=== PATIENT | male | born 1955 | race Caucasian/White ===

== ENCOUNTER 2019-07-27 17:15 | Emergency (ER) | payer MEDICAID, OTHER ==
[~2019-07-27] VITALS: Ht 182.9 cm; Wt 90.7 kg
[2019-07-27 18:05] VITALS: BP 158/107
== END 2019-07-27 18:08 | disposition home or self-care (01) ==
LOC: ER 17:15
DX: L20.9 Atopic dermatitis, unspecified (principal); I10 Essential (primary) hypertension; Z76.0 Encounter for issue of repeat prescription

== ENCOUNTER 2019-12-20 15:54 | Emergency (ER) | payer MEDICAID ==
[~2019-12-20] VITALS: Ht 182.9 cm; Wt 88.5 kg
[2019-12-20] MEDS ORDERED: cloNIDine HCL 0.1 MG TAB PO ONE (16:15)
[2019-12-20] MEDS ORDERED: EPINEPHrine HCL 1 MG/1 ML AMP SC ONE (17:15)
[2019-12-20] MEDS ORDERED: methylPREDNISolone SOD SUCC 125 MG/2 ML VL IM ONE (17:15)
[2019-12-20 17:45] VITALS: BP 155/104
== END 2019-12-20 17:46 | disposition home or self-care (01) ==
LOC: ER 15:54
DX: T78.40XA Allergy, unspecified, initial encounter (principal); I10 Essential (primary) hypertension; X58.XXXD Exposure to other specified factors, subsequent encounter
CPT/HCPCS: 96372; 99284; J0171; J2930

== ENCOUNTER 2020-02-01 09:06 | Emergency (ER) | payer MEDICAID ==
[~2020-02-01] VITALS: Ht 182.9 cm; Wt 81.6 kg
[2020-02-01 09:21] VITALS: BP 155/110
[2020-02-01] MEDS ORDERED: methylPREDNISolone SOD SUCC 125 MG/2 ML VL IM ONE (09:45)
[2020-02-01] MEDS ORDERED: diphenhdrAMINE HCL 50 MG/1 ML VL IM ONE (09:45)
== END 2020-02-01 10:10 | disposition home or self-care (01) ==
LOC: ER 09:06
DX: L20.9 Atopic dermatitis, unspecified (principal); I10 Essential (primary) hypertension
CPT/HCPCS: 96372; 99284; J1200; J2930

== ENCOUNTER 2021-11-20 11:28 | Emergency (ER) | payer MEDICARE, MEDICAID ==
[~2021-11-20] VITALS: Ht 182.9 cm; Wt 92.8 kg
[2021-11-20 13:55] VITALS: BP 165/110
[2021-11-20] MEDS ORDERED: TETANUS-DIPTH-ACEL PERTUSSIS 0.5ML SYR Tdap IM ONE (15:00)
== END 2021-11-20 15:18 | disposition home or self-care (01) ==
LOC: ER 11:32
DX: S00.83XA Contusion of other part of head, initial encounter (principal); S01.332A Puncture wound without foreign body of left ear, initial encounter; I10 Essential (primary) hypertension; W18.39XA Other fall on same level, initial encounter; Y93.89 Activity, other specified; Y92.89 Other specified places as the place of occurrence of the external cause; Y99.8 Other external cause status
CPT/HCPCS: 70160; 90471; 90715

== ENCOUNTER 2021-12-03 13:48 | Emergency (ER) | payer MEDICARE, MEDICAID ==
[~2021-12-03] VITALS: Ht 182.9 cm; Wt 95.4 kg
[2021-12-03 16:29] VITALS: BP 154/104
[2021-12-03] MEDS ORDERED: TRIA0.02 TOP (16:59)
[2021-12-03] MEDS ORDERED: HYDR25CA PO (16:59)
[2021-12-03] MEDS ORDERED: METH4PAK PO (16:59)
== END 2021-12-03 17:12 | disposition home or self-care (01) ==
LOC: ER 13:48
DX: L20.9 Atopic dermatitis, unspecified (principal); I10 Essential (primary) hypertension

== ENCOUNTER 2022-07-06 08:30 | Inpatient (IN) | payer MEDICARE, MEDICAID ==
[~2022-07-06] VITALS: Ht 182.9 cm; Wt 96.1 kg
[~2022-07-06 08:30] MED LIST: ACET-1158 PO; CLIN300C8 PO; HYDR-4924 PO; HYDR25CA PO; LORA10CA7 PO; METH4PAK PO; TRIA0.02 TOP
[2022-07-06] MEDS ORDERED: cloNIDine HCL 0.1 MG TAB PO ONE (09:15)
[2022-07-06] MEDS ORDERED: methylPREDNISolone SOD SUCC 125 MG/2 ML VL IM ONE (09:15)
[2022-07-06 09:27] LABS: Basophils # (auto) 0.1 10 ^3/uL (0-0.2); Eosinophils % (auto) 8.6 % (0.0-7.0); Monocytes # (auto) 0.8 10 ^3/uL (0-1.3); White Blood Cell 6.4 10^3/uL (4.4-10.8)
[2022-07-06 09:29] LABS: Basophils % (auto) 1.3 % (0.0-2.0); Eosinophils # (auto) 0.5 10 ^3/uL (0-0.8); Hematocrit 44.9 % (41.0-53.0); Lymphocytes # (auto) 1.7 10 ^3/uL (0.4-5.4); Lymphocytes % (auto) 26.6 % (10.0-50.0); Mean Corpuscular Hemoglobin 25.3 pg (28.0-32.0); Mean Corpuscular Hgb Conc. 33.4 g/dL (32.0-36.0); Mean Corpuscular Volume 75.7 fL (80.0-100.0); Monocytes % (auto) 12.3 % (0.0-12.0); Neutrophils # (auto) 3.3 10 ^3/uL (1.6-8.6); Neutrophils % (auto) 51.2 % (37.0-80.0); Nucleated Red Blood Cells % 0.2 %; Red Blood Cells 5.94 10^6/uL (4.5-5.90); Red Cell Distribution Width 18.1 % (11.8-14.3)
[2022-07-06 10:29] LABS: Potassium 4.7 mmol/L (3.5-5.1)
[2022-07-06 10:39] LABS: Albumin 3.3 g/dL (3.4-5.0); BUN/Creatinine Ratio 21.2 (10.0-20.0); Bilirubin, Total 0.5 mg/dL (0.2-1.0); Calcium 9.2 mg/dL (8.5-10.1); Total Protein 7.2 g/dL (6.4-8.2)
[2022-07-06] MEDS ORDERED: LABETALOL HCL 5 MG/ML 4ML SYRINGE IV ONE ×2 (11:25→11:30)
[2022-07-06] MEDS ORDERED: SODIUM CHLORIDE 0.9% 1,000 ML IV ONE ×2 (11:30)
[2022-07-06] MEDS ORDERED: ACETAMINOPHEN 325 MG TAB PO PRN (13:00)
[2022-07-06] MEDS ORDERED: NITROGLYCERIN 0.4 MG SL TAB SL PRN (13:00)
[2022-07-06] MEDS ORDERED: hydrALAZINE HCL 20 MG/ML VL IV PRN (13:00)
[2022-07-06] MEDS ORDERED: MORPHINE SULFATE INJ 2 MG/ml SYRG IV PRN ×2 (13:00)
[2022-07-06] MEDS ORDERED: HYDROcodone-ACET 5/325MG TAB PO PRN (13:00)
[2022-07-06] MEDS ORDERED: LISINOPRIL 20 MG TAB PO ONE (13:00)
[2022-07-06] MEDS ORDERED: diphenhdrAMINE HCL 50 MG/1 ML VL IV ONE (13:30)
[2022-07-06] MEDS ORDERED: DexAMETHasone SOD PHOS 10MG/1ML VIAL INJ IV ONE (13:30)
[2022-07-06] MEDS ORDERED: FAMOTIDINE (10MG/ML) 2ML VL IV ONE (13:30)
[2022-07-06] MEDS ORDERED: diphenhdrAMINE HCL 50 MG/1 ML VL IV PRN (13:30)
[2022-07-06] MEDS ORDERED: PANTOPRAZOLE 40 MG/10 ML VIAL INJ IV ONE (13:30)
[2022-07-06] MEDS: SOD CHL 0.45% 1,000 ML IV SCH ×2 (14:23→23:35)
[2022-07-06 15:44] LABS: Urine Bacteria NONE SEEN /hpf (None Seen); Urine Blood Negative /uL (Negative); Urine Specific Gravity 1.014 (1.001-1.035); Urine WBC 1 /hpf (0 - 3)
[2022-07-07 06:00] LABS: Basophils # (auto) 0.1 10 ^3/uL (0-0.2); Basophils % (auto) 1.2 % (0.0-2.0); Eosinophils # (auto) 0 10 ^3/uL (0-0.8); Eosinophils % (auto) 0.1 % (0.0-7.0); Hematocrit 40.3 % (41.0-53.0); Hemoglobin 13.7 g/dL (13.5-17.5); Lymphocytes # (auto) 1.1 10 ^3/uL (0.4-5.4); Lymphocytes % (auto) 10.8 % (10.0-50.0); Mean Corpuscular Hemoglobin 25.9 pg (28.0-32.0); Mean Corpuscular Volume 76.2 fL (80.0-100.0); Monocytes # (auto) 0.4 10 ^3/uL (0-1.3); Monocytes % (auto) 3.8 % (0.0-12.0); Neutrophils # (auto) 8.2 10 ^3/uL (1.6-8.6); Neutrophils % (auto) 84.1 % (37.0-80.0); Red Blood Cells 5.28 10^6/uL (4.5-5.90); Red Cell Distribution Width 17.7 % (11.8-14.3); White Blood Cell 9.7 10^3/uL (4.4-10.8)
[2022-07-07 06:17] LABS: Potassium 4.9 mmol/L (3.5-5.1)
[2022-07-07 06:22] LABS: BUN/Creatinine Ratio 23.9 (10.0-20.0); Calcium 8.7 mg/dL (8.5-10.1)
[2022-07-07 06:49] LABS: Bilirubin, Total 0.6 mg/dL (0.2-1.0); Total Protein 6.9 g/dL (6.4-8.2)
[2022-07-07] MEDS: SOD CHL 0.45% 1,000 ML IV SCH (09:00)
[2022-07-07] MEDS ORDERED: PANTOPRAZOLE 40 MG/10 ML VIAL INJ IV SCH (10:00)
[2022-07-07] MEDS ORDERED: LISINOPRIL 20 MG TAB PO SCH (10:00)
[2022-07-07] MEDS ORDERED: ENOXAPARIN SOD 40 MG/0.4 ML SYRINGE SC SCH (10:00)
[2022-07-07] MEDS ORDERED: TRIA0.02 TOP (11:56)
[2022-07-07] MEDS ORDERED: NIFE1TAB36 PO (11:56)
[2022-07-07 12:00] VITALS: BP 142/85
[2022-07-07 14:32] LABS: Cholesterol 146 mg/dL (< 200); HDL Cholesterol 46 mg/dL (40-59); LDL Cholesterol 81 mg/dL (< 100); Triglycerides 97 mg/dL (< 150)
== END 2022-07-07 12:53 | disposition home or self-care (01) | DRG 304 ==
LOC: ER 08:30 → TELE 13:13
PROVIDERS: ADMIT Registered Nurse; ATTEND Nurse Practitioner Acute Care
DX: I16.9 Hypertensive crisis, unspecified (principal); G93.41 Metabolic encephalopathy; E86.0 Dehydration; J45.909 Unspecified asthma, uncomplicated; L20.9 Atopic dermatitis, unspecified; I10 Essential (primary) hypertension
CPT/HCPCS: 36415; 70450; 71045; 80053; 80061; 81001; 82962; 83036; 83880; 84443; 84484; 85025; 93005; 93306; 96361; 96372; 96374; C9113; G0378; J1100; J3490

== ENCOUNTER 2022-07-15 02:03 | Emergency (ER) | payer MEDICARE, MEDICAID ==
[~2022-07-15] VITALS: Ht 182.9 cm; Wt 96.6 kg
[~2022-07-15 02:03] MED LIST changes: +NIFE1TAB36 PO
[2022-07-15 02:30] VITALS: BP 162/88
[2022-07-15] MEDS ORDERED: CETITAB29 PO (03:09)
== END 2022-07-15 04:10 | disposition home or self-care (01) ==
LOC: ER 02:03
DX: Q80.9 Congenital ichthyosis, unspecified (principal); I10 Essential (primary) hypertension; F41.9 Anxiety disorder, unspecified; Z88.6 Allergy status to analgesic agent